=== PATIENT | female | born 1945 | race African-American/Black ===

== ENCOUNTER 2018-03-22 17:44 | Emergency (ER) | payer MEDICARE, BC ==
--- NOTE | 2018-03-22 22:12 | ED ---
Neurological HPI - HPI Summary HPI Summary: The pt is a 72 y.o female presenting to the [facility] with a chief complaint of head injury. The mechanism of the injury was described as a fall while getting "something" out of her car. Pt hit the back of her head. According to the pt's son, as per pt report, the pt was having trouble finding words. Pt was able to verbalize in triage and in initial examination. The onset of the injury was reported to have been "a couple of days ago." Pt is not on blood thinners. Pt denies vomiting, and visual changes. Pt states that she has had a hx of subdural hematoma previously (due to a fall). Pt also denies neck pain. - History of Current Complaint Chief Complaint: EDHeadInjury Stated Complaint: FALL/HEAD INJURY Time Seen by Provider: 03/22/18 21:14 Hx Obtained From: Patient Onset/Duration: Sudden Onset Pain Intensity: 0 Pain Scale Used: 0-10 Numeric Associated Signs and Symptoms: Positive: Impaired Speech - Previously trouble finding words. Negative: Visual Changes, Nausea/Vomiting, Neck Pain/Stiffness - Allergy/Home Medications Allergies/Adverse Reactions: Allergies Allergy/AdvReac Type Severity Reaction Status Date / Time No Known Allergies Allergy Verified 01/05/18 08:15 Home Medications: Home Medications Biotin/Keratin [Biotin Plus Keratin Tablet] 1 each PO DAILY 03/22/18 [History Confirmed 03/22/18] PMH/Surg Hx/FS Hx/Imm Hx Endocrine/Hematology History: Reports: Hx Diabetes - type II Denies: Hx Anticoagulant Therapy, Hx Thyroid Disease Cardiovascular History: Reports: Hx Hypertension Respiratory History: Denies: Hx Asthma, Hx Chronic Obstructive Pulmonary Disease (COPD) GI History: Denies: Hx Ulcer History: Denies: Hx Renal Disease Sensory History: Reports: Hx Cataracts, Hx Contacts or Glasses Opthamlomology History: Reports: Hx Cataracts, Hx Contacts or Glasses Neurological History: Reports: Hx Migraine - Cancer History Cancer Type, Location and Year: rectum Hx Chemotherapy: No Hx Radiation Therapy: No - Surgical History Surgery Procedure, Year, and Place: cataract removal BILAT, SURGICAL DRAINAGE OF SUBDURAL HEMATOMAS-08/2014 from falls - Immunization History Date of Tetanus Vaccine: unknwon Infectious Disease History: No Infectious Disease History: Denies: Hx Clostridium Difficile, Hx Hepatitis, Hx Human Immunodeficiency Virus (HIV), Hx of Known/Suspected MRSA, Hx Shingles, Hx Tuberculosis, Hx Known/ Suspected VRE, Hx Known/Suspected VRSA, History Other Infectious Disease, Traveled Outside the [place] in Last 30 Days - Family History Known Family History: Positive: Cardiac Disease, Hypertension, Diabetes - Social History Occupation: Retired Lives: With Family Alcohol Use: Rare Substance Use Type: Reports: None Smoking Status (MU): Never Smoked Tobacco Review of Systems Constitutional: Negative Eyes: Other - Negatie visual changes ENT: Negative Cardiovascular: Negative Respiratory: Negative Negative: Vomiting Genitourinary: Negative Musculoskeletal: Other - Negative neck pain Skin: Negative Neurological: Other - Head injury (back of the head); trouble finding words prior to [facility] arrival Psychological: Normal All Other Systems Reviewed And Are Negative: Yes Physical Exam - Summary Physical Exam Summary: VITAL SIGNS: Reviewed. GENERAL: Patient is a well-developed and nourished (FEMALE) who is lying comfortable in the stretcher. Patient is not in any acute respiratory distress. HEAD AND FACE: No signs of trauma. No ecchymosis, hematomas or skull depressions. No sinus tenderness. EYES: PERRLA, EOMI x 2, No injected conjunctiva, no nystagmus. EARS: Hearing grossly intact. Ear canals and tympanic membranes are within normal limits. MOUTH: Oropharynx within normal limits. NECK: Supple, trachea is midline, no adenopathy, no JVD, no carotid bruit, no c- spine tenderness, neck with full ROM. CHEST: Symmetric, no tenderness at palpation LUNGS: Clear to auscultation bilaterally. No wheezing or crackles. CVS: Regular rate and rhythm, S1 and S2 present, no murmurs or gallops appreciated. ABDOMEN: Soft, non-tender. No signs of distention. No rebound no guarding, and no masses palpated. Bowel sounds are normal. EXTREMITIES: FROM in all major joints, no edema, no cyanosis or clubbing. NEURO: Alert and oriented x 3. No acute neurological deficits. Speech is normal and follows commands. SKIN: Dry and warm Triage Information Reviewed: Yes Vital Signs On Initial Exam: Initial Vitals Temp Pulse Resp BP Pulse Ox 98.1 F 75 16 157/77 99 03/22/18 17:49 03/22/18 17:49 03/22/18 17:49 03/22/18 17:49 03/22/18 17:49 Vital Signs Reviewed: Yes Diagnostics - Vital Signs Vital Signs Temp Pulse Resp BP Pulse Ox 03/22/18 21:18 69 16 163/93 97 03/22/18 21:17 69 23 97 03/22/18 19:48 98.5 F 67 22 142/73 100 03/22/18 17:49 98.1 F 75 16 157/77 99 - Laboratory Lab Statement: Any lab studies that have been ordered have been reviewed, and results considered in the medical decision making process. - CT Brain CT CT Interpretation Completed By: Radiologist Course/Dx - Course Course Of Treatment: The pt is a 72 y.o female with a chief complaint of head injury. She also discussed a possibility of verbal changes ("trouble finding words"). She has a prior Hx of a subdural hemotoma (s/p fall). The pt received a CT brain in the [facility] which showed negative findings as per radiologist report. The pt will be discharged home with a dx of head injury. - Diagnoses Provider Diagnoses: Head injury Discharge - Sign-Out/Discharge Documenting (check all that apply): Patient Departure - Discharge home - Discharge Plan Condition: Stable Disposition: HOME Patient Education Materials: Head Injury (ED) Referrals: Maria Isabel Villanueva MD [Primary Care Provider] - Additional Instructions: RETURN TO THE EMERGENCY DEPARTMENT FOR CHANGING OR WORSENING SYMPTOMS. FOLLOW UP WITH PCP IN 1-2 DAYS. - Attestation Statements Document Initiated by Scribe: Yes Documenting Scribe: Orlando Cuenca Provider For Whom Scribe is Documenting (Include Credential): Dr. José Miguel Abdul Scribe Attestation: Orlando Pfeiffer, luz elena for Dr. José Miguel Abdul on 03/22/18 at 2302.
--- NOTE | 2018-03-22 22:14 | RAD ---
EXAM: CT Head Without Intravenous Contrast EXAM DATE/TIME: 03/22/2018 9:32 PM CLINICAL HISTORY: 72 years old, female; Injury or trauma; Fall; Additional info: Head injury TECHNIQUE: Axial computed tomography images of the head/brain without intravenous contrast. All CT scans at this facility use at least one of these dose optimization techniques: automated exposure control; mA and/or kV adjustment per patient size (includes targeted exams where dose is matched to clinical indication); or iterative reconstruction. COMPARISON: BRAIN WO CT BRAIN WO 08/28/2014 6:35 AM FINDINGS: Brain: Left basal ganglia calcification. No hemorrhage. There are mild periventricular and subcortical lucencies consistent with chronic microvascular ischemic changes. Ventricles: Ventricles and sulci are prominent consistent with age appropriate parenchymal volume loss. Bones/joints: Prior michaelle holes in bilateral parietal skull. Sinuses: Normal as visualized. No acute sinusitis. Mastoid air cells: Normal as visualized. No mastoid effusion. Soft tissues: Normal. IMPRESSION: 1. No acute intracranial abnormality. 2. Chronic microvascular ischemic changes. To contact [facility] with a general question: [facility] - [phone] For direct physician to physician contact: Physician Hotline - [phone] [facility] ([facility] Facility ID #[id number])
[2018-03-22 23:30] VITALS: BP 148/85
== END 2018-03-22 23:30 | disposition home or self-care (01) ==
LOC: ED 17:44
DX: S09.90XA Unspecified injury of head, initial encounter (principal); W22.8XXA Striking against or struck by other objects, initial encounter; Y93.89 Activity, other specified; Y92.810 Car as the place of occurrence of the external cause
CPT/HCPCS: 70450; 99282

== ENCOUNTER 2024-02-24 19:35 | Observation (INO) ==
[2024-02-24 21:33] LABS: ABS Eosinophils 0.2 10^3/uL (0.0-0.5); ABS Lymphocytes 1.8 10^3/uL (1.0-4.8); ABS Monocytes 0.3 10^3/uL (0.0-0.9); ABS Neutrophils 2.8 10^3/uL (1.5-7.6); ABS Nucleated RBC 0.01 10^3/ul; Eosinophil % 3.4 %; Hematocrit 44.3 % (35-45); Hemoglobin 14.6 g/dL (11.5-14.3); Lymphocyte % 35.2 %; Mean Corpuscular Hemoglobin 29.8 pg (27-33); Mean Corpuscular Volume 90.2 fL (80-97); Mean Platelet Volume 8.9 fL (7.5-11.2); Nucleated Red Blood Cells % 0.1 %/100WBC (0.0-0.8); Platelet Count 231 10^3/uL (150-450); Red Blood Count 4.91 10^6/uL (3.63-4.92); Red Cell Distribution Width 15.3 % (12-17); White Blood Count 5.2 10^3/uL (3.8-11.8)
[2024-02-24 21:38] LABS: Activated Partial Thrombo Time 36.8 seconds (26.0-38.0); INR 0.96 (0.85-1.14)
[2024-02-24 21:55] LABS: High Sens Troponin Baseline < 3 pg/mL (<15)
[2024-02-24 22:04] LABS: ALT 12 U/L (7-52); AST 19 U/L (13-39); Albumin 4.7 g/dL (3.2-5.2); Albumin/Globulin Ratio 1.8 (1-3); Alkaline Phosphatase 82 U/L (35-149); Anion Gap 7 mmol/L (2-16); Blood Urea Nitrogen 20 mg/dL (6-24); CO2 Carbon Dioxide 27 mmol/L (22-32); Calcium 10.2 mg/dL (8.6-10.3); Chloride 102 mmol/L (101-111); Cholesterol 130 mg/dL; Creatinine, Serum 0.87 mg/dL (0.51-0.95); Globulin 2.6 g/dL (2-4); Glucose 92 mg/dL (70-100); HDL Cholesterol 80.1 mg/dL; LDL Cholesterol 31 mg/dL; Sodium 136 mmol/L (135-145); Total Bilirubin 0.7 mg/dL (0.2-1.0); Total Protein 7.3 g/dL (6.4-8.9); Triglycerides 96 mg/dL; eGFR CKD-EPI 68.2 (>60)
[2024-02-24] MEDS: Iodixanol (CONTRAST) 320 MG/ML 100 ML SDV IV ONE (22:19)
[2024-02-24 23:26] LABS: High Sensitivity Troponin 1 Hr < 3 pg/mL (<15)
[2024-02-25 01:10] LABS: Urine Appearance Clear; Urine Bacteria Absent /HPF (Absent); Urine Bilirubin Negative (Negative); Urine Blood Negative (Negative); Urine Color Light-Yellow; Urine Glucose 4+ (>=1000 mg/dL) (Negative); Urine Ketones Trace (Negative); Urine Nitrite Negative (Negative); Urine Protein Trace (Negative); Urine Red Blood Cell Absent /HPF (0-Trace); Urine Squamous Epithelial Cell Present /HPF (Absent); Urine Urobilinogen Negative (Negative); Urine White Blood Cell 1+(6-10/hpf) /HPF (0-Trace); Urine pH 5.5 (5.0-8.0)
[2024-02-25] MEDS ORDERED: Dextrose 50% Syringe 50 ml 25 GM/50 ML SYRINGE IV PUSH PRN (04:04)
[2024-02-25 05:52] LABS: ABS Eosinophils 0.2 10^3/uL (0.0-0.5); ABS Lymphocytes 1.4 10^3/uL (1.0-4.8); ABS Monocytes 0.4 10^3/uL (0.0-0.9); ABS Neutrophils 2.1 10^3/uL (1.5-7.6); Eosinophil % 3.8 %; Hematocrit 38.6 % (35-45); Hemoglobin 12.9 g/dL (11.5-14.3); Lymphocyte % 34.9 %; Mean Corpuscular Hemoglobin 30.1 pg (27-33); Mean Corpuscular Hgb Conc 33.5 g/dL (31-36); Mean Corpuscular Volume 89.7 fL (80-97); Mean Platelet Volume 8.8 fL (7.5-11.2); Nucleated Red Blood Cells % 0.1 %/100WBC (0.0-0.8); Platelet Count 212 10^3/uL (150-450); Red Cell Distribution Width 15.2 % (12-17)
[2024-02-25 06:10] LABS: Calcium 9.3 mg/dL (8.6-10.3); Creatinine, Serum 0.86 mg/dL (0.51-0.95); Potassium 3.9 mmol/L (3.5-5.0); eGFR CKD-EPI 69.1 (>60)
[2024-02-25] MEDS ORDERED: Sulfur Hexaflouride MICROSPHR 25 MG VIAL IV PRN (08:57)
[2024-02-25 10:35] LABS: TSH Ultra Thyroid Stim Horm 2.16 mcIU/mL (0.34-5.60)
[2024-02-25] MEDS: Cyanocobalamin INJ 1,000 MCG/ML VIAL 1 ML VIAL IM ONE (13:18)
[2024-02-25 18:12] VITALS: BP 124/70
[2024-02-25] MEDS: Influenza Vaccine *TRI* 2024-25* 0.5 ML SYRINGE IM ONE (18:25)
[2024-02-25] MEDS: COVID VAC 24-25 (12+) (Moderna) Syringe 0.5 mL IM ONE (18:33)
[2024-02-26] MEDS ORDERED: COVID VAC 24-25 (12+) (Moderna) Syringe 0.5 mL IM ONE (09:00)
[2024-02-26] MEDS ORDERED: Influenza Vaccine *TRI* 2024-25* 0.5 ML SYRINGE IM ONE (09:00)
== END 2024-02-25 18:50 | disposition home or self-care (01) ==
LOC: EDHOLD 19:35 → ED 19:35 → MEDTELE 02-25 03:15 → SUATTDRO 02-25 03:15 → MEDTELE 02-25 10:52
PROVIDERS: ADMIT Student in an Organized Health Care Education/Training Program; ATTEND Student in an Organized Health Care Education/Training Program